=== PATIENT | female | born 1990 | race Caucasian/White ===

== ENCOUNTER 2018-10-24 18:24 | Emergency (ER) | payer OTHER ==
[~2018-10-24] VITALS: Ht 175.3 cm; Wt 77.1 kg
[2018-10-24 18:49] LABS: ABSOLUTE NEUTROPHILS 3.8 thou/uL (1.4-8.2); BASOPHILS 0.7 % (0.0-2.0); EOSINOPHILS 3.4 % (0.0-3.0); HEMATOCRIT 41.4 % (37.0-47.0); HEMOGLOBIN 14.2 gm/dL (12.0-15.0); LYMPHOCYTES 31.7 % (24.0-44.0); MCH 30.8 pg (26.0-34.0); MCHC 34.3 g/dL (28.0-37.0); MCV 89.9 fL (80.0-100.0); MONOCYTES 5.9 % (1.0-8.0); PLATELET COUNT 143 thou/uL (150-400); POLYS 58.3 % (36.0-66.0); RBC 4.61 mil/uL (4.20-5.00); WBC 6.6 thou/uL (4.0-11.0)
[2018-10-24 18:55] LABS: CALCIUM 8.8 mg/dL (8.5-10.1); CREATININE 0.7 mg/dL (0.6-1.0); POTASSIUM 3.7 mmol/L (3.5-5.1)
[2018-10-24 19:01] LABS: ALBUMIN 3.9 g/dL (3.4-5.0); TOTAL BILIRUBIN 0.4 mg/dL (<0.1-1.0); TOTAL PROTEIN 7.9 g/dL (6.4-8.2)
[2018-10-24 19:34] LABS: URINE BILIRUBIN NEGATIVE (Negative); URINE BLOOD NEGATIVE (Negative); URINE CLARITY CLEAR; URINE COLOR YELLOW; URINE GLUCOSE-RANDOM* NEGATIVE (Negative); URINE KETONES 1+ (Negative); URINE LEUKOCYTES-REFLEX NEGATIVE (Negative); URINE NITRITE-REFLEX NEGATIVE (Negative); URINE PROTEIN (DIPSTICK) NEGATIVE (Negative); URINE SPECIFIC GRAVITY <= 1.005 (1.005-1.035); URINE UROBILINOGEN 0.2 E.U./dl (0.2-1.0)
[2018-10-24 19:42] LABS: AMP/METHAMP Negative (Negative); BARBITURATES Negative (Negative); BENZODIAZEPINES Negative (Negative); COCAINE Negative (Negative); METHADONE Negative (Negative); OPIATES Negative (Negative); PCP Negative (Negative)
[2018-10-24] MEDS ORDERED: PREDNISONE 20 M20 MG PO (20:27)
[2018-10-24 21:09] VITALS: BP 121/83
== END 2018-10-24 21:10 | disposition home or self-care (01) ==
LOC: ER 18:24
PROVIDERS: Nurse Practitioner Family
DX: T78.49XA Other allergy, initial encounter (principal); F10.129 Alcohol abuse with intoxication, unspecified; Y90.8 Blood alcohol level of 240 mg/100 ml or more; R94.5 Abnormal results of liver function studies; Z87.891 Personal history of nicotine dependence; X58.XXXA Exposure to other specified factors, initial encounter